=== PATIENT | male | born 1985 | race Caucasian/White ===

== ENCOUNTER 2021-01-19 13:50 | Emergency (ER) | payer OTHER ==
[~2021-01-19] VITALS: Ht 170.2 cm; Wt 71.2 kg
[2021-01-19 13:56] VITALS: BP 145/83
--- NOTE | 2021-01-19 14:21 | NUR ---
35 YO MALE BIB SELF FOR C/O ABCESS UNDER R ARMPIT. PT THINKS DEODERANT CAUSED IT BECAUSE ONCE HE STOPPED USING IT, THE PAIN WENT AWAY AND THE SIZE DECREASED. DENIES FEVER/N/V, AND OTC MEDS. PT USED HOT COMPRESS LAST NIGHT THAT HELPED WITH THE PAIN. PT DENIES PAIN AT THIS TIME. ABSCESS NOTED UNDER PAIN- RED AND SWOLLEN. PT A/O X4 WITH EVEN AND UNLABORED RESPIRATIONS. PT LAYING IN BED WITH BED IN LOWEST POSITION, BRAKES LOCKED, X1 SIDERAIL UP. MED HX: DENIES NKA Addendum: 01/19/21 at 1541 by [email or web address] PT STATES CYST HAS BEEN PRESENT X2 WEEKS.
--- NOTE | 2021-01-19 14:22 | NUR ---
KYLE SANCHEZ AT BEDSIDE
[2021-01-19] MEDS ORDERED: SULF-979 PO (14:29)
[2021-01-19] MEDS ORDERED: NAPR-1704 PO (14:29)
--- NOTE | 2021-01-19 14:45 | NUR ---
Patient discharged with v/s stable. Written and verbal after care instructions given and explained. Patient alert, oriented and verbalized understanding of instructions. Ambulatory with steady gait. All questions addressed prior to discharge. ID band removed. Patient advised to follow up with PMD. Rx of NAPROXEN AND SULFAMETHOXAZOLE/TRIMETHOPRIM given. Patient educated on indication of medication including possible reaction and side effects. Opportunity to ask questions provided and answered.
[2021-01-19 14:57] VITALS: BP 145/83
== END 2021-01-19 14:45 | disposition home or self-care (01) ==
LOC: MED 13:50
DX: L02.411 Cutaneous abscess of right axilla (principal); Z79.899 Other long term (current) drug therapy
CPT/HCPCS: 99283